=== PATIENT | female | born 1955 | race Caucasian/White ===

== ENCOUNTER → 2024-11-04 | Outpatient (CLI) | payer MEDICARE ==
[~2024-11-04] MED LIST: GADOTERATE MEGLUMINE 5 MMOL/10 ML VIAL IV ONE
== END | disposition home or self-care (01) ==
LOC: MRI 01:41
PROVIDERS: ATTEND Physician Assistant
DX: M47.816 Spondylosis without myelopathy or radiculopathy, lumbar region (principal); G06.2 Extradural and subdural abscess, unspecified; R60.0 Localized edema; M51.369 Other intervertebral disc degeneration, lumbar region without mention of lumbar back pain or lower extremity pain